=== PATIENT | female | born 1985 | race Caucasian/White ===

== ENCOUNTER 2023-04-21 16:27 | Emergency (ER) | payer OTHER ==
[2023-04-21 16:39] VITALS: BP 127/88; PULSE 108; RESP 18; TEMP 98.1; BMI 26.9
[2023-04-21 17:51] LABS: BASO % 0.4 % (0-2.0); EOS % 0.1 % (0-4.5); HEMATOCRIT 40.9 % (32.4-45.2); HEMOGLOBIN 13.7 GM/dL (10.7-15.3); LYMPH % 9.3 % (8-40); MCH 30.5 pg (25.7-33.7); MCHC 33.6 g/dl (32.0-36.0); MEAN PLT VOLUME 9.2 fl (7.5-11.1); MONO % 4.6 % (3.8-10.2); NEUT % 85.6 % (42.8-82.8); PLATELET COUNT 296 10^3/uL (134-434); RDW 12.6 % (11.6-15.6); WHITE BLOOD COUNT 16.2 K/mm3 (4.0-10.0)
[2023-04-21 17:57] LABS: POTASSIUM 4.4 mmol/L (3.5-5.1)
[2023-04-21 17:59] LABS: ALBUMIN 4.4 g/dl (3.4-5.0); BLOOD UREA NITROGEN 10.9 mg/dL (7-18); CALCIUM 9.5 mg/dL (8.5-10.1)
[2023-04-21 18:02] LABS: CREATININE 0.8 mg/dL (0.55-1.3)
[2023-04-21 18:04] LABS: BILIRUBIN,TOTAL 0.4 mg/dL (0.2-1); TOT PROT 7.9 g/dl (6.4-8.2)
[2023-04-21 18:31] LABS: URINE APPEARANCE CLEAR; URINE BILIRUBIN NEGATIVE (NEGATIVE); URINE COLOR YELLOW; URINE GLUCOSE (UA) NEGATIVE (NEGATIVE); URINE KETONE NEGATIVE (NEGATIVE); URINE LEUK ESTERASE NEGATIVE (NEGATIVE); URINE NITRITE NEGATIVE (NEGATIVE); URINE PROTEIN NEGATIVE (NEGATIVE); URINE UROBILINOGEN 0.2 mg/dL (0.2-1.0)
== END 2023-04-21 19:00 | disposition home or self-care (01) ==
LOC: JER 16:27
DX: O26.891 Other specified pregnancy related conditions, first trimester (principal); O9A.211 Injury, poisoning and certain other consequences of external causes complicating pregnancy, first trimester; R10.9 Unspecified abdominal pain; M25.511 Pain in right shoulder; M79.631 Pain in right forearm; Y04.2XXA Assault by strike against or bumped into by another person, initial encounter; Z3A.00 Weeks of gestation of pregnancy not specified
CPT/HCPCS: 36415; 80053; 81003; 84702; 85025; 86850; 86900; 86901; 87086; 99283-25